=== PATIENT | male | born 1970 | race African-American/Black ===

== ENCOUNTER 2017-05-02 00:54 | Emergency (ER) | payer OTHER ==
--- NOTE | 2017-05-02 03:22 | ER Document Report ---
ED GI Bleed / Rectal Pain - General Chief Complaint: Rectal Bleeding Stated Complaint: RECTAL BLEEDING Time Seen by Provider: 05/02/17 02:56 Notes: Patient is a 46-year-old male who comes emergency department for chief complaint of rectal pain and bleeding. He states that at 11 AM he had a large hard painful bowel movement with a tearing sensation and afterwards felt blood running down his legs. He states he has applied pressure to the area throughout the day but it has continued to bleed without stopping once. He denies taking blood thinners, takes a baby aspirin daily. He denies history of the same. He denies any abdominal pain, dizziness, fever. He has not eaten anything since breakfast, has had no further bowel movements (he states he is scared to try). Past medical history of type 2 diabetes and hypertension, both medicated. History of orthopedic surgery. TRAVEL OUTSIDE OF THE [place] IN LAST 30 DAYS: No Past Medical History - General Information source: Patient - Social History Smoking Status: Never Smoker Drug Abuse: None Lives with: Family Family History: Reviewed & Not Pertinent Patient has suicidal ideation: No Patient has homicidal ideation: No - Past Medical History Cardiac Medical History: Reports: Hx Hypertension Endocrine Medical History: Reports: Hx Diabetes Mellitus Type 2 Renal/ Medical History: Denies: Hx Peritoneal Dialysis Past Surgical History: Reports: Hx Orthopedic Surgery - Immunizations Immunizations up to date: Yes Hx Diphtheria, Pertussis, Tetanus Vaccination: Yes Review of Systems - Review of Systems Constitutional: No symptoms reported EENT: No symptoms reported Cardiovascular: No symptoms reported Respiratory: No symptoms reported Gastrointestinal: No symptoms reported Genitourinary: No symptoms reported Male Genitourinary: No symptoms reported Musculoskeletal: No symptoms reported Skin: No symptoms reported Hematologic/Lymphatic: No symptoms reported Neurological/Psychological: No symptoms reported Physical Exam - Vital signs Vitals: Temp Pulse Resp Pulse Ox 98.6 F 88 19 100 05/02/17 00:59 05/02/17 00:59 05/02/17 00:59 05/02/17 00:59 Interpretation: Normal - General General appearance: Alert, Anxious In distress: None - HEENT Head: Normocephalic, Atraumatic Eyes: Normal Conjunctiva: Normal Extraocular movements intact: Yes Eyelashes: Normal Pupils: PERRL Sinus: Normal Nasal: Normal Mouth/Lips: Normal Mucous membranes: Normal Pharynx: Normal Neck: Normal - Respiratory Respiratory status: No respiratory distress Chest status: Nontender Breath sounds: Normal Chest palpation: Normal - Cardiovascular Rhythm: Regular Heart sounds: Normal auscultation Murmur: No - Abdominal Inspection: Normal Distension: No distension Bowel sounds: Normal Tenderness: Nontender. No: Tender, Guarding - Rectal Tenderness: Yes Stool: Bloody Hemorrhoids: Other - swollen, bloody, edematous tissue protruding through and filling the space around the anus and the area around the anus; current bleeding noted; area tender - Back Back: Normal, Nontender - Extremities General upper extremity: Normal inspection, Nontender, Normal color, Normal ROM , Normal temperature General lower extremity: Normal inspection, Nontender, Normal color, Normal ROM , Normal temperature, Normal weight bearing. No: Chelly's sign - Neurological Neuro grossly intact: Yes Cognition: Normal Orientation: AAOx4 [place] Coma Scale Eye Opening: Spontaneous Abad Coma Scale Verbal: Oriented Abad Coma Scale Motor: Obeys Commands [place] Coma Scale Total: 15 Speech: Normal Cranial nerves: Normal Cerebellar coordination: Normal Motor strength normal: LUE, RUE, LLE, RLE Additional motor exam normals: Equal director it project Sensory: Normal - Psychological Associated symptoms: Normal affect, Normal mood - Skin Skin Temperature: Warm Skin Moisture: Dry Skin Color: Normal Course - Re-evaluation Re-evalutation: Dr. Dunham evaluated at bedside because of concerning appearance of rectal bleeding and tissue. Recommends surgical consult. Labs pending. Patient anxious and hypertensive. Patient stable. 05/02/17 03:15 Called Surgeon three dimensional map modeler, Dr. Mendoza, he states he will come evaluate the patient. 05/02/17 Dr. Mendoza performed a reduction maneuver and was able to replace swollen, edematous, and bleeding prolapsed internal hemorrhoids in the room. He recommends discharge, recommends suppository, stool softener, and he discussed return precautions with patient. CBC unremarkable, chemistry generally unremarkable. Blood pressure at patient's baseline now (per patient and fiancee) at 160s systolic. Packing dressing placed. Discussed followup and return precautions with patient. He stated understanding and agreement. - Vital Signs Vital signs: Temp Pulse Resp BP Pulse Ox 97.9 F 73 16 168/117 H 98 05/02/17 02:24 05/02/17 02:24 05/02/17 04:45 05/02/17 04:01 05/02/17 04:45 - Laboratory Result Diagrams: 05/02/17 03:18 05/02/17 03:18 Laboratory results interpreted by me: 05/02/17 05/02/17 03:18 03:18 Hgb 13.2 L Potassium 3.4 L Glucose 145 H Total Protein 8.5 H Discharge - Discharge Clinical Impression: Rectal bleeding, Prolapsed internal hemorrhoids Condition: Stable Disposition: HOME, SELF-CARE Additional Instructions: The prolapsed internal hemorrhoids have been reduced. Keep a bulky dressing on the area. You can apply ice to the area (helps shrink swollen tissue, helps comfort). Use suppositories, use the stool softener daily x1 month. Afterwards increase fiber in your diet. Avoid any straining if possible, especially until area heals. You can attempt to reduce the hemorrhoids if needed. Return if bleeding becomes heavy again. Follow up with the surgical clinic closely (see referral). Return to the ED for any concerning symptoms. Prescriptions: Docusate Sodium [Colace 100 mg Capsule] 100 mg PO DAILY #30 capsule Phenylephrine HCl [Anusol Suppository] 1 supp.rect [place] BID #28 supp.rect Referrals: [facility] [Provider Group] - Follow up tomorrow
[2017-05-02 03:36] LABS: ABSOLUTE BASOPHILS # (AUTO) 0.1 10^3/uL (0.0-0.2); ABSOLUTE EOSINOPHILS # (AUTO) 0.2 10^3/uL (0.0-0.6); ABSOLUTE LYMPHOCYTES (AUTO) 1.2 10^3/uL (0.5-4.7); ABSOLUTE MONOCYTES (AUTO) 0.5 10^3/uL (0.1-1.4); ABSOLUTE NEUT (AUTO) 3.9 10^3/uL (1.7-8.2); EOSINOPHILS % (AUTO) 3.7 % (0-6); HEMATOCRIT 38.2 % (37.9-51.0); HEMOGLOBIN 13.2 g/dL (13.5-17.0); HGB HCT DIFFERENCE 1.4; LYMPHOCYTES % (AUTO) 20.6 % (13-45); MEAN CORPUSCULAR HEMOGLOBIN 27.6 pg (27.0-33.4); MEAN CORPUSCULAR HGB CONC 34.6 g/dL (32.0-36.0); MEAN CORPUSCULAR VOLUME 80 fl (80-97); MONOCYTES % (AUTO) 8.4 % (3-13); RED CELL DISTRIBUTION WIDTH 12.3 % (11.5-14.0); SEGMENTED NEUTROPHILS % (AUTO) 66.3 % (42-78); WHITE BLOOD COUNT 5.9 10^3/uL (4.0-10.5)
[2017-05-02 03:54] LABS: PROTHROMBIN TIME 13.3 SEC (11.4-15.4)
[2017-05-02 03:55] LABS: PARTIAL THROMBOPLASTIN TIME 29.1 SEC (23.5-35.8)
--- NOTE | 2017-05-02 04:01 | PDOC CONSULTATION ---
Consultation Consult Date: 05/02/17 Attending physician:: SHELLEY GIRON Consult reason:: Rectal bleeding History of Present Illness Patient complains of: Rectal bleeding History of Present Illness: SHANNAN JORDAN is a 46 year old male who presents to [facility] with acute onset of rectal bleeding starting at 11am yesterday and persisting throughout the day till this am. Continued bleeding prompted ER visit. He presents with his . Notable this has occurred prior and resolved spontaneously. He had associated bleeding with bowel movement and sporadically throughout the day. In ER internal hemorrhoids were reduced with improvement of bleeding. Education was provided for both patient and family for continued care and possible further/ recurrent bleeding plan. Both acknowledge this. Currently denying any fever, chest pain, shortness of breath, headache, dizziness or loss of consciousness. Patient was advised against heavy lifting, prolonged BM, or straining. Currently retired but does weight lift and BP significantly elevated which is normal per the patient. Past Medical History Medical History: Other - HTN, DM type II, History of internal hemorrhoids Social History Information Source: Patient Occupation: retired Lives with: Spouse/Significant other Smoking Status: Never Smoker Frequency of Alcohol Use: Rare Hx Recreational Drug Use: No Hx Prescription Drug Abuse: No Family History Parental Family History Reviewed: Yes - Mother HTN and Father DM Children Family History Reviewed: Yes - None Sibling(s) Family History Reviewed.: Yes - Brother Asthma Medication/Allergy Home Medications: Docusate Sodium [Colace 100 mg Capsule] 100 mg PO DAILY #30 capsule 05/02/17 Phenylephrine HCl [Anusol Suppository] 1 supp.rect RI BID #28 supp.rect Review of Systems Constitutional: PRESENT: as per HPI Nose, Mouth, and Throat: ABSENT: headache(s), mouth pain Cardiovascular: ABSENT: chest pain Respiratory: ABSENT: cough, dyspnea Gastrointestinal: PRESENT: other - BRBPR. ABSENT: abdominal pain, constipation , diarrhea, heartburn, hematemesis, nausea, vomiting Neurological: ABSENT: syncope, vertigo, weakness Physical Exam Vital Signs: Temp Pulse Resp BP Pulse Ox 97.9 F 73 14 207/119 H 97 05/02/17 02:24 05/02/17 02:24 05/02/17 03:16 05/02/17 03:16 05/02/17 03:16 Intake & Output 04/30/17 05/01/1705/02/17 06:59 06:59 06:59 Weight 117 kg General appearance: PRESENT: no acute distress Head exam: PRESENT: atraumatic, normocephalic Mouth exam: PRESENT: moist, neck supple Respiratory exam: ABSENT: accessory muscle use Vascular exam: PRESENT: normal capillary refill GI/Abdominal exam: PRESENT: soft. ABSENT: tenderness Rectal exam: PRESENT: hemorrhoids, mass - Internal hemorrhoids reduced, normal rectal tone Neurological exam: PRESENT: alert, awake, oriented to person, oriented to place , oriented to time, oriented to situation, CN II-XII grossly intact. ABSENT: motor sensory deficit Results Laboratory Results: 05/02/17 03:18 05/02/17 05/02/17 03:18 03:18 WBC 5.9 RBC 4.80 Hgb 13.2 L Hct 38.2 MCV 80 MCH 27.6 MCHC 34.6 RDW 12.3 Plt Count 195 Seg Neutrophils % 66.3 Lymphocytes % 20.6 Monocytes % 8.4 Eosinophils % 3.7 Basophils % 1.0 Absolute Neutrophils 3.9 Absolute Lymphocytes 1.2 Absolute Monocytes 0.5 Absolute Eosinophils 0.2 Absolute Basophils 0.1 Stool Occult Blood NEGATIVE Assessment & Plan - Diagnosis (1) Prolapsed internal hemorrhoids Plan: Okay for discharge home with short term follow up with PCP. Bowel regimen inclusive of stool softener, fiber supplements. Steroid suppositories to be used to help with abatement of bloody bowel movements and BRBPR. Short-term follow-up without resolution of bleeding but patient is made aware that the next several bowel movements can still have blood if no blood clot within them. It should show continued signs of resolution. Patient was counseled on behavioral depilation to reduce strain to the area diminished lifting to prevent continued bleeding. With any recurrent/worsening symptoms he is encouraged to present to the ER. - Time Time Spent: 30 to 50 Minutes Anticipated discharge: Home Within: within 24 hours
[2017-05-02 04:20] LABS: ALANINE AMINOTRANSFERASE 34 U/L (21-72); ALKALINE PHOSPHATASE 78 U/L (38-126); ANION GAP 15 (5-19); ASPARTATE AMINO TRANSFERASE 33 U/L (17-59); BILIRUBIN,DIRECT 0.4 mg/dL (0.0-0.4); BILIRUBIN,TOTAL 1.1 mg/dL (0.2-1.3); BLOOD UREA NITROGEN 13 mg/dL (7-20); CALCIUM 10.2 mg/dL (8.4-10.2); CARBON DIOXIDE 26 mmol/L (22-30); CHLORIDE 100 mmol/L (98-107); GLUCOSE 145 mg/dL (75-110); POTASSIUM 3.4 mmol/L (3.6-5.0); TOTAL PROTEIN 8.5 g/dL (6.3-8.2)
[2017-05-02 04:44] VITALS: BP 168/117
== END 2017-05-02 04:58 | disposition home or self-care (01) ==
LOC: ER 00:54
DX: K64.2 Third degree hemorrhoids (principal); K62.5 Hemorrhage of anus and rectum; K62.89 Other specified diseases of anus and rectum; E11.9 Type 2 diabetes mellitus without complications; I10 Essential (primary) hypertension
CPT/HCPCS: 36415; 80053; 82272; 85025; 85610; 85730; 86850; 86900; 86901; 99284